=== PATIENT | male | born 1940 | race American Indian/Alaskan Native ===

== ENCOUNTER → 2020-02-01 | Outpatient (CLI) | payer MEDICARE ==
[~2020-02-01] MED LIST: ALBU90OI61 INH; BENZ100A PO; FAMO20 PO; FLUSAL2505 INH; GUAI600T33 PO; IBUP400 PO; LEVFLO500 PO; Norco 5-325 Ta1 EACH PO; OXYACE5T PO; Prednisone10 MG PO; Protonix40 MG PO; SPACER IH; SUCR1 PO; Zofran8 MG PO
[2020-02-07 13:09] LABS: M-SPIKE, % Not Observed % (Not Observed); PROTEIN,TOTAL,URINE 20.2 mg/dL (Not Estab.)
== END ==
LOC: LAB 08:00 → LAB SHORT 08:00 → LAB FUT 01-30 09:55
PROVIDERS: Internal Medicine
DX: E87.8 Other disorders of electrolyte and fluid balance, not elsewhere classified (principal)
CPT/HCPCS: 81050; 84156; 84166

== ENCOUNTER 2021-02-25 19:57 | Inpatient (IN) | payer MEDICARE ==
[~2021-02-25] VITALS: Ht 172.7 cm; Wt 45.7 kg
[~2021-02-25 19:57] MED LIST changes: -FLUSAL2505 INH; +FLUT1DIS5 INH
[2021-02-25 20:13] LABS: BASOPHILS ABSOLUTE AUTO 0.06 K/mm3 (0.00-0.23); BASOPHILS PERCENT AUTO 0 % (0-2); EOSINOPHILS ABSOLUTE AUTO 0.01 K/mm3 (0.00-0.68); EOSINOPHILS PERCENT AUTO 0 % (0-6); Hematocrit 43.8 % (37.0-53.0); Hemoglobin 14.3 g/dL (13.5-17.5); IMMATURE GRAN ABSOLUTE AUTO 0.11 K/mm3 (0.00-0.10); IMMATURE GRAN PERCENT AUTO 1 % (0-1); LYMPHOCYTES ABSOLUTE AUTO 4.24 K/mm3 (0.84-5.20); LYMPHOCYTES PERCENT AUTO 21 % (21-46); MONOCYTES ABSOLUTE AUTO 1.65 K/mm3 (0.16-1.47); MONOCYTES PERCENT AUTO 8 % (4-13); Mean Corpuscular HGB 29.5 pg (26.0-34.0); Mean Corpuscular HGB Conc 32.6 g/dL (31.5-36.5); Mean Corpuscular Volume 91 fL (80-100); Mean Platelet Volume 10.3 fL (9.1-12.4); NEUTROPHILS ABSOLUTE AUTO 14.14 K/mm3 (1.96-9.15); NEUTROPHILS PERCENT AUTO 70 % (41-73); Platelet Count 261 K/mm3 (150-400); RDW Coefficient Variation 14.5 % (11.7-14.2); RDW Standard Deviation 48.9 fL (35.1-46.3); Red Blood Cell Count 4.84 M/mm3 (4.30-5.90); White Blood Cell Count 20.21 K/mm3 (4.00-11.30)
[2021-02-25] MEDS ORDERED: TIOT18 INH (20:13)
[2021-02-25] MEDS ORDERED: ALBU2.5V5 NEB (20:14)
[2021-02-25 20:30] LABS: Anion Gap 8 mmol/L (6-16); Blood Urea Nitrogen 27 mg/dL (8-24); Bun/Creatinine Ratio 23.3 (12.0-20.0); CO2, Blood 27 mmol/L (21-32); Calcium, Blood 8.3 mg/dL (8.5-10.1); Chloride, Blood 99 mmol/L (98-108); Creatinine, Blood 1.16 mg/dL (0.60-1.20); Glomerular Filtration Rate >60 (60-); Glucose, Blood 113 mg/dL (70-99); Potassium, Blood 4.3 mmol/L (3.5-5.5); Sodium, Blood 134 mmol/L (136-145); Troponin I <0.015 ng/mL (0.000-0.040)
[2021-02-26 00:52] LABS: Influenza A, PCR NEGATIVE (NEGATIVE); Influenza B, PCR NEGATIVE (NEGATIVE); Resp Syncytial Virus, PCR NEGATIVE (NEGATIVE)
[2021-02-26 01:07] LABS: SARS-Cov-2 (COVID-19) PCR, MMC POSITIVE (NEGATIVE)
[2021-02-26 05:24] LABS: BASOPHILS ABSOLUTE AUTO 0.05 K/mm3 (0.00-0.23); BASOPHILS PERCENT AUTO 0 % (0-2); EOSINOPHILS ABSOLUTE AUTO 0.22 K/mm3 (0.00-0.68); EOSINOPHILS PERCENT AUTO 1 % (0-6); Hematocrit 39.2 % (37.0-53.0); Hemoglobin 12.9 g/dL (13.5-17.5); IMMATURE GRAN ABSOLUTE AUTO 0.07 K/mm3 (0.00-0.10); IMMATURE GRAN PERCENT AUTO 0 % (0-1); LYMPHOCYTES ABSOLUTE AUTO 1.05 K/mm3 (0.84-5.20); LYMPHOCYTES PERCENT AUTO 6 % (21-46); MONOCYTES PERCENT AUTO 9 % (4-13); Mean Corpuscular HGB 29.9 pg (26.0-34.0); Mean Corpuscular HGB Conc 32.9 g/dL (31.5-36.5); Mean Corpuscular Volume 91 fL (80-100); Mean Platelet Volume 10.3 fL (9.1-12.4); NEUTROPHILS ABSOLUTE AUTO 13.45 K/mm3 (1.96-9.15); NEUTROPHILS PERCENT AUTO 82 % (41-73); Platelet Count 220 K/mm3 (150-400); RDW Coefficient Variation 14.6 % (11.7-14.2); RDW Standard Deviation 49.2 fL (35.1-46.3); Red Blood Cell Count 4.31 M/mm3 (4.30-5.90); White Blood Cell Count 16.34 K/mm3 (4.00-11.30)
[2021-02-26 06:03] LABS: Alanine Aminotransfer (ALT/SGP 17 U/L (12-78); Albumin, Blood 2.7 g/dL (3.4-5.0); Albumin/Globulin Ratio 0.8 (0.8-1.8); Alk Phos 94 U/L (50-136); Anion Gap 7 mmol/L (6-16); Aspartate Aminotrans (AST/SGOT 23 U/L (12-37); Bilirubin, Total 0.6 mg/dL (0.1-1.0); Blood Urea Nitrogen 27 mg/dL (8-24); Bun/Creatinine Ratio 25.7 (12.0-20.0); CO2, Blood 27 mmol/L (21-32); Chloride, Blood 103 mmol/L (98-108); Creatinine, Blood 1.05 mg/dL (0.60-1.20); Globulin, Blood 3.5 g/dL (2.2-4.0); Glomerular Filtration Rate >60 (60-); Glucose, Blood 110 mg/dL (70-99); Potassium, Blood 4.6 mmol/L (3.5-5.5); Sodium, Blood 137 mmol/L (136-145); Total Protein, Blood 6.2 g/dL (6.4-8.2)
--- NOTE | 2021-02-26 17:41 | NUR ---
SHIFT SUMMARY PATIENT ADMITTED AT 1430 FROM ER. PATIENT SETTLED INTO ROOM. PATIENT DENIES PAIN, NAUSEA. PATIENT REPORTS SHORTNESS OF BREATH CONSISTANTLY. PATIENT HAS VISIBLE LABORED BREATHING. AUDIBLE WHEEZE WITH INSPIRATION. PATIENT IS ON 3L VIA N/C. PATIENT SATURATING ABOVE 95%. NEW ORDERS FOR REGULAR DIET. PATIENT EATING AND DRINKING WELL. TELE PLACED, RUNNING SINUS TACH AT 104. PATIENT VISITED. PATIENT IS VERY [place]. PATIENT IS PLEASANT AND COOPERATIVE WITH CARE.
[2021-02-27 05:17] LABS: BASOPHILS ABSOLUTE AUTO 0.04 K/mm3 (0.00-0.23); BASOPHILS PERCENT AUTO 0 % (0-2); EOSINOPHILS PERCENT AUTO 0 % (0-6); Hematocrit 42.3 % (37.0-53.0); Hemoglobin 13.9 g/dL (13.5-17.5); IMMATURE GRAN ABSOLUTE AUTO 0.06 K/mm3 (0.00-0.10); IMMATURE GRAN PERCENT AUTO 0 % (0-1); LYMPHOCYTES ABSOLUTE AUTO 0.51 K/mm3 (0.84-5.20); LYMPHOCYTES PERCENT AUTO 3 % (21-46); MONOCYTES ABSOLUTE AUTO 0.43 K/mm3 (0.16-1.47); MONOCYTES PERCENT AUTO 3 % (4-13); Mean Corpuscular HGB 29.8 pg (26.0-34.0); Mean Corpuscular HGB Conc 32.9 g/dL (31.5-36.5); Mean Corpuscular Volume 91 fL (80-100); Mean Platelet Volume 10.9 fL (9.1-12.4); NEUTROPHILS ABSOLUTE AUTO 14.78 K/mm3 (1.96-9.15); NEUTROPHILS PERCENT AUTO 93 % (41-73); Platelet Count 244 K/mm3 (150-400); RDW Coefficient Variation 14.5 % (11.7-14.2); RDW Standard Deviation 48.8 fL (35.1-46.3); Red Blood Cell Count 4.67 M/mm3 (4.30-5.90); White Blood Cell Count 15.82 K/mm3 (4.00-11.30)
--- NOTE | 2021-02-27 05:37 | NUR ---
SHIFT SUMMARY PT WAS ADMITTED FOR SOB DUE TO COVID 19. PT ON ENHANCED RESPIRATORY ISOLATION.FULL CODE STATUS. PT IS AA0X4, PLEASANT AND COOPERATIVE WITH CARE.PT REMAINS ON 3L NC, SATURATION 90 TO 96% NO CONCERNS VOICED BY PATIENT .MEDS GIVEN PER EMAR. PT DENIES PAIN. BED IN LOWER POSITION AND CALL LIGHT IN REACH. WILL CONTINUE TO MONITOR UNTIL GIVING REPORT TO ONCOMING NURSE.
--- NOTE | 2021-02-27 16:11 | NUR ---
SHIFT SUMMARY PATIENT DENIES PAIN AND NAUSEA. PATIENT IS FREQUENTLY SHORT OF BREATH. PATIENT IS ON 3L VIA N/C. PATIENT DESATS WITH ACTIVITY. PATIENT GETS VERY SOB WITH ANY ACTIVITY. PATIENT SON VISITED IN AFTERNOON. CARLOS ENRIQUE FROM PALL[facility]IVE [facility] VISITED PATIENT AND SON. PATIENT HAS POOR PO INTAKE, ENSURES ADDED TO MEALS. PATIENT IS VERY [place]. PATIENT IS PLEASANT AND COOPERATIVE WITH CARE.
--- NOTE | 2021-02-27 18:29 | NUR ---
Met with pt and his son. They were open to disuss hospice, which we did at [facility], and they'll talk with the rest of the family tonight. Pt denies pain, but does have increased SOB from his baseline, and is aware of the new nodules in his lungs. We also discussed POLST, and agree to sit down and finish it when son is present.
--- NOTE | 2021-02-28 04:14 | NUR ---
SHIFT SUMMARY PT IS AAOX4, PLEASANT AND COOPERATIVE WITH CARE. PT REMAINS ON ENHANCED RESPIARTORY ISOLATION.PT ON 3L NC. PT IS SOB WITH ANY LITTLE ACTIVITY.PT DENIES PAIN.ALL MEDS WERE GIVEN PER EMAR. PT IS RESTING NOW ,BED IN LOWER POSITION AND CALL LIGHT IN EASY REACH.WILL CONTINUE TO MONITOR IN CARE.
[2021-02-28 04:57] LABS: Hematocrit 42.7 % (37.0-53.0); Hemoglobin 13.8 g/dL (13.5-17.5); Mean Corpuscular HGB 29.3 pg (26.0-34.0); Mean Corpuscular HGB Conc 32.3 g/dL (31.5-36.5); Mean Corpuscular Volume 91 fL (80-100); Mean Platelet Volume 10.8 fL (9.1-12.4); Platelet Count 261 K/mm3 (150-400); RDW Coefficient Variation 14.7 % (11.7-14.2); RDW Standard Deviation 49.4 fL (35.1-46.3); Red Blood Cell Count 4.71 M/mm3 (4.30-5.90)
[2021-02-28 05:16] LABS: BAND PERCENT MAN 28 % (0-8); BASOPHILS PERCENT MAN 0 % (0-2); EOSINOPHILS PERCENT MAN 0 % (0-6); LYMPHOCYTES ABSOLUTE MAN 0.51 K/mm3 (0.84-5.20); LYMPHOCYTES PERCENT MAN 2 % (21-46); MONOCYTES ABSOLUTE MAN 0.51 K/mm3 (0.16-1.47); MONOCYTES PERCENT MAN 2 % (4-13); NEUTROPHILS ABSOLUTE MAN 24.48 K/mm3 (1.96-9.15); SEG NEUTROPHILS PERCENT MAN 68 % (41-73); TOTAL CELLS COUNTED 100
[2021-02-28 05:37] LABS: Anion Gap 5 mmol/L (6-16); Blood Urea Nitrogen 40 mg/dL (8-24); Bun/Creatinine Ratio 40.9 (12.0-20.0); CO2, Blood 30 mmol/L (21-32); Calcium, Blood 8.7 mg/dL (8.5-10.1); Chloride, Blood 105 mmol/L (98-108); Creatinine, Blood 0.98 mg/dL (0.60-1.20); Glomerular Filtration Rate >60 (60-); Glucose, Blood 144 mg/dL (70-99); Potassium, Blood 4.6 mmol/L (3.5-5.5); Sodium, Blood 140 mmol/L (136-145)
[2021-02-28 12:16] LABS: Source, Urine Straight Cath
[2021-02-28 12:20] LABS: Appearance, Urine Clear (Clear); Bilirubin, Urine Neg (Neg); Blood, Urine 2+ (Neg); Color, Urine Yellow (P-Yellow); Glucose Qualitative, Urine Neg (Neg); Ketones, Urine Neg (Neg); Leukocyte Esterase, Urine Neg (Neg); Nitrite, Urine Neg (Neg); Protein, Urine 2+ (Neg); Urobilinogen, Urine NORM (Normal)
[2021-02-28 12:35] LABS: Bacteria Mod /hpf; Mucus Light (0-Heavy); Red Blood Cells, Urine 0-2 /hpf (0-2); Squamous Epithelial Cells Mod /hpf (Few); White Blood Cells, Urine 0-2 /hpf (0-5)
--- NOTE | 2021-02-28 17:06 | NUR ---
SHIFT NOTE PT REMAINS ON 3L O2 VIA NASAL CANNULA T/O THE DAY WITH SPO2 >94%. ST c OCCASIONAL PVCs NOTED. URINE SAMPLE COLLECTED AND SENT TO LAB. DR ORDERED NEBULAIZED MORPHINE Q6 HOURS PRN FOR AIR HUNGER, HE HAS RECIEVED ONE DOSE, IT IS NOTED THAT PT HAD A HX OF AGGRESSION WITH MORPHINE IN THE PAST, MORPHINE WAS GIVEN WITH CAUTION WILL MONITOR FOR AGGRESSION. PT OTHERWISE REPORTS INTERMITENT AIR HUNGER. PT DENIES CP
--- NOTE | 2021-02-28 17:09 | NUR ---
SHIFT NOTE PT HAS REFUSED ZOLOFT AND ATARAX FOR ANXIETY STS THAT SHE CAN NOT TAKE "ANY ANXIETY MEDICATIONS AT ALL" BUT IS REQUESTING XANAX. PT ALSO REFUSED NICTENE PATCH, AND HER EVENING DOSE OF LASIX STS "I AM NOT SUPPOSED TO BE TAKING MY WATER PILL AT NIGHT BECAUSE I WILL NEVER REST" PT IS THOROUGHLY EDCUATED ABOUT MEDICATION COMPLIANCE AND STS "I AM AWARE". PER GUERRERO PATTON PT HAS A BED AT [facility] IN [place] FOR TOMORROW.
--- NOTE | 2021-03-01 03:55 | NUR ---
SHIFT SUMMARY NO ACUTE EVENTS OVERNIGHT . PT REMAINS ON 3L NC, SOB WITH EXHAUSTION. ALL MEDS WERE GIVEN PER EMAR. NO COMPLAINT OF PAIN WAS VOICED. BED IN LOWER POSITION AND CALL LIGHT IN REACH.WILL CONTINUE TO MONITOR IN CARE.
[2021-03-01 05:11] LABS: BASOPHILS ABSOLUTE AUTO 0.05 K/mm3 (0.00-0.23); BASOPHILS PERCENT AUTO 0 % (0-2); EOSINOPHILS PERCENT AUTO 0 % (0-6); Hematocrit 40.8 % (37.0-53.0); Hemoglobin 12.8 g/dL (13.5-17.5); IMMATURE GRAN ABSOLUTE AUTO 0.18 K/mm3 (0.00-0.10); IMMATURE GRAN PERCENT AUTO 1 % (0-1); LYMPHOCYTES ABSOLUTE AUTO 0.48 K/mm3 (0.84-5.20); LYMPHOCYTES PERCENT AUTO 2 % (21-46); MONOCYTES ABSOLUTE AUTO 0.55 K/mm3 (0.16-1.47); MONOCYTES PERCENT AUTO 3 % (4-13); Mean Corpuscular HGB 29.2 pg (26.0-34.0); Mean Corpuscular HGB Conc 31.4 g/dL (31.5-36.5); Mean Corpuscular Volume 93 fL (80-100); Mean Platelet Volume 10.7 fL (9.1-12.4); NEUTROPHILS ABSOLUTE AUTO 20.54 K/mm3 (1.96-9.15); NEUTROPHILS PERCENT AUTO 94 % (41-73); Platelet Count 238 K/mm3 (150-400); RDW Coefficient Variation 14.9 % (11.7-14.2); Red Blood Cell Count 4.38 M/mm3 (4.30-5.90)
--- NOTE | 2021-03-01 08:00 | NUR ---
pt laying in bed awake a/ox3, [place], pleasant and cooperative with care, follows commands well, denies pain, states he feels good, lungs are dim t/o, has a productive cough of yellow patten sputum, currently on 3 liters 02 via n/c, resp even and unlabored, hrr, tele in place running sr to st per monitor, see strip, no edema noted, ppp+2, cap refill<3sec, vs stable, afebrile, iv site is clear and patent, btx4, abd flat soft nontender, voids via urinal, skin frail but intact, reports no bm in several days, gave prune juice, maew, but is weak and pt states he can't ambulate to bathroom, explained we can bring a bedside cammode, patricia, call light in reach.
--- NOTE | 2021-03-01 18:09 | NUR ---
pt son in to visit, new iv was placed today to right wrist after many attempts, viens were blowing as soon as touched, old iv removed intact, no acute changes this shift. call light in reach.
--- NOTE | 2021-03-02 04:02 | NUR ---
NO ACUTE CHANGES TO PT CONDITION AT THIS TIME. PT CONTINUES TO BE ON 3L O2 AND ON TELE. PT SITTING UP WATCHING TELEVISION. PLEASANT AND COOPERATIVE WITH CARE. CALL LIGHT WITHIN REACH. WILL CONTINUE TO MONITOR.
[2021-03-02 05:14] LABS: BASOPHILS ABSOLUTE AUTO 0.02 K/mm3 (0.00-0.23); BASOPHILS PERCENT AUTO 0 % (0-2); EOSINOPHILS PERCENT AUTO 0 % (0-6); Hematocrit 43.2 % (37.0-53.0); Hemoglobin 13.5 g/dL (13.5-17.5); IMMATURE GRAN ABSOLUTE AUTO 0.11 K/mm3 (0.00-0.10); IMMATURE GRAN PERCENT AUTO 1 % (0-1); LYMPHOCYTES PERCENT AUTO 5 % (21-46); MONOCYTES ABSOLUTE AUTO 1.13 K/mm3 (0.16-1.47); MONOCYTES PERCENT AUTO 6 % (4-13); Mean Corpuscular HGB 29.2 pg (26.0-34.0); Mean Corpuscular HGB Conc 31.3 g/dL (31.5-36.5); Mean Corpuscular Volume 93 fL (80-100); Mean Platelet Volume 10.7 fL (9.1-12.4); NEUTROPHILS ABSOLUTE AUTO 16.15 K/mm3 (1.96-9.15); NEUTROPHILS PERCENT AUTO 88 % (41-73); Platelet Count 240 K/mm3 (150-400); RDW Coefficient Variation 14.7 % (11.7-14.2); RDW Standard Deviation 50.7 fL (35.1-46.3); Red Blood Cell Count 4.63 M/mm3 (4.30-5.90); White Blood Cell Count 18.31 K/mm3 (4.00-11.30)
[2021-03-02] MEDS ORDERED: PRED20 PO (12:03)
[2021-03-02] MEDS ORDERED: VISBIOME 112.51 EACH PO (12:06)
[2021-03-02] MEDS ORDERED: AMOCLA500 PO (12:07)
--- NOTE | 2021-03-02 14:53 | NUR ---
RT DID EVAL. STATES 2L MANAGER FORMS. DISCCHARGE REVIEWED WITH PT, HE VERBALIZED UNDRSTANDING MEDS AND INST. KEEP IV AND TELE UNTIL DISCHARGE. O2 TANK WAS BROUGHT TO ROOM. MAIN TANK TO BE DELIVERED TO SON'S HOME. STATES THIS IS WHERE HE STATES WILL STAY FOR SHORT REHAB. WHEN SON HERE, WILL REMOVE IV AND TELE.
--- NOTE | 2021-03-02 15:59 | NUR ---
PT HAS BEEN PLEASANT TODAY. NO C/O PAIN. EXPECTING TO D/C WHEN O2 PLACED AT HOME ON SON. PORTABLE O2 HERE NOW. D/C DONE EXCEPT IV REMOVAL. PENDING CALL FOR D/C
--- NOTE | 2021-03-02 17:21 | NUR ---
IV REMOVED INTACT. TELE REMOVED. PT WHEELED TO DOOR BY ME AT 165
== END 2021-03-02 16:50 | disposition home or self-care (01) | DRG 177 ==
LOC: ER 19:57 → ERHOLD 02-26 00:50 → MEDS 02-26 14:20
PROVIDERS: Internal Medicine; Student in an Organized Health Care Education/Training Program; ADMIT Internal Medicine
PROC: 8E0ZXY6 Isolation (ICD-10-PCS; principal; 2021-02-26)
PROC: XW033E5 Introduction of Remdesivir Anti-infective into Peripheral Vein, Percutaneous Approach, New Technology Group 5 (ICD-10-PCS; 2021-02-26)
DX: U07.1 COVID-19 (principal); J96.01 Acute respiratory failure with hypoxia; E43 Unspecified severe protein-calorie malnutrition; C34.90 Malignant neoplasm of unspecified part of unspecified bronchus or lung; R64 Cachexia; Z68.1 Body mass index [BMI] 19.9 or less, adult; J43.9 Emphysema, unspecified; B96.3 Hemophilus influenzae [H. influenzae] as the cause of diseases classified elsewhere; J20.8 Acute bronchitis due to other specified organisms; Z66 Do not resuscitate; N40.0 Benign prostatic hyperplasia without lower urinary tract symptoms; Z87.891 Personal history of nicotine dependence
CPT/HCPCS: 0241U; 31720; 36415; 71045; 71260; 80048; 80053; 81001; 83880; 84145; 84484; 85025; 85379; 86140; 87070; 87077; 87086; 87185; 87205; 93005; 93010; 94640; 94761; 94762; 99285-25; A9270; J0248; J0456; J0696; J1650; J2270; J2930; J7050; J7120; J7512; Q9967

== ENCOUNTER 2021-06-21 09:04 | Inpatient (IN) | payer MEDICARE ==
[~2021-06-21] VITALS: Ht 172.7 cm; Wt 50.1 kg
[~2021-06-21 09:04] MED LIST changes: +ALBU2.5V5 NEB; +AMOCLA500 PO; +PRED20 PO; +TIOT18 INH; +VISBIOME 112.51 EACH PO
[2021-06-21 09:25] LABS: Calcium, Ionized (POC) 1.16 mmol/L (1.10-1.46); Chloride (POC) 107 mmol/L (98-108); Glucose (ISTAT POC) 217 mg/dL (70-99); Potassium (POC) 4.2 mmol/L (3.5-5.5); Sodium (POC) 144 mmol/L (135-148); Total CO2 (POC) 28 mmol/L (21-32)
[2021-06-21 09:26] LABS: BASOPHILS ABSOLUTE AUTO 0.14 K/mm3 (0.00-0.23); BASOPHILS PERCENT AUTO 1 % (0-2); EOSINOPHILS PERCENT AUTO 3 % (0-6); Hematocrit 47.2 % (37.0-53.0); Hemoglobin 14.2 g/dL (13.5-17.5); Mean Corpuscular HGB 29.2 pg (26.0-34.0); Mean Corpuscular HGB Conc 30.1 g/dL (31.5-36.5); Mean Corpuscular Volume 97 fL (80-100); Mean Platelet Volume 10.8 fL (9.1-12.4); Platelet Count 296 K/mm3 (150-400); RDW Coefficient Variation 14.9 % (11.7-14.2); RDW Standard Deviation 54.6 fL (35.1-46.3); Red Blood Cell Count 4.86 M/mm3 (4.30-5.90); White Blood Cell Count 18.46 K/mm3 (4.00-11.30)
[2021-06-21 09:28] LABS: IMMATURE GRAN ABSOLUTE AUTO 0.05 K/mm3 (0.00-0.10); IMMATURE GRAN PERCENT AUTO 0 % (0-1); LYMPHOCYTES ABSOLUTE AUTO 6.19 K/mm3 (0.84-5.20); LYMPHOCYTES PERCENT AUTO 34 % (21-46); MONOCYTES ABSOLUTE AUTO 1.32 K/mm3 (0.16-1.47); MONOCYTES PERCENT AUTO 7 % (4-13); NEUTROPHILS ABSOLUTE AUTO 10.26 K/mm3 (1.96-9.15); NEUTROPHILS PERCENT AUTO 56 % (41-73)
[2021-06-21 09:30] LABS: PCO2 Arterial > 105 mmHg (35-45); pH Blood Arterial 6.92 (7.35-7.45)
[2021-06-21 09:31] LABS: PO2 Arterial 139 mmHg (80-100)
[2021-06-21 09:33] LABS: Anion Gap 7 mmol/L (6-16); Blood Urea Nitrogen 28 mg/dL (8-24); Bun/Creatinine Ratio 26.4 (12.0-20.0); CO2, Blood 26 mmol/L (21-32); Calcium, Blood 8.8 mg/dL (8.5-10.1); Chloride, Blood 111 mmol/L (98-108); Creatinine, Blood 1.06 mg/dL (0.60-1.20); Glomerular Filtration Rate >60 (60-); Glucose, Blood 224 mg/dL (70-99); Potassium, Blood 4.2 mmol/L (3.5-5.5); Sodium, Blood 144 mmol/L (136-145)
[2021-06-21 09:48] LABS: BASOPHILS ABSOLUTE MAN 0.36 K/mm3 (0.00-0.23); BASOPHILS PERCENT MAN 2 % (0-2); EOSINOPHILS ABSOLUTE MAN 0.73 K/mm3 (0.00-0.68); EOSINOPHILS PERCENT MAN 4 % (0-6); LYMPHOCYTES ABSOLUTE MAN 4.61 K/mm3 (0.84-5.20); LYMPHOCYTES PERCENT MAN 25 % (21-46); MONOCYTES ABSOLUTE MAN 0.55 K/mm3 (0.16-1.47); MONOCYTES PERCENT MAN 3 % (4-13); NEUTROPHILS ABSOLUTE MAN 12.18 K/mm3 (1.96-9.15); SEG NEUTROPHILS PERCENT MAN 66 % (41-73); TOTAL CELLS COUNTED 100
[2021-06-21 10:48] LABS: Influenza A, PCR NEGATIVE (NEGATIVE); Influenza B, PCR NEGATIVE (NEGATIVE); Resp Syncytial Virus, PCR NEGATIVE (NEGATIVE); SARS-Cov-2 (COVID-19) PCR, MMC NEGATIVE (NEGATIVE)
[2021-06-21 10:51] LABS: PCO2 Venous 73.5 mmHg (38-42); pH Blood Venous 7.21 (7.34-7.37)
[2021-06-21 10:52] LABS: Base Excess Venous 1.8 mmol/L; Bicarbonate Venous 23.3 mmol/L (24.0-30.0)
--- NOTE | 2021-06-21 11:59 | NUR ---
ADMISSION: Pt arrived to ICU at 1148. He was placed on BIPAP 12/6 at 75%. Left chest tube in place. Pt is awake and alert.
--- NOTE | 2021-06-21 12:24 | NUR ---
PULMONOLOGY: Discussed case with Dr. Evangelista.
--- NOTE | 2021-06-21 13:00 | NUR ---
CHEST TUBE: Dr Miller called to clarify order for chest tube until Dr Evangelista has had a chance to see pt. RN to put chest tube to gravity until seen by pulmonology.
[2021-06-21 13:24] LABS: PCO2 Arterial 50.3 mmHg (35-45); PO2 Arterial 338 mmHg (80-100); pH Blood Arterial 7.34 (7.35-7.45)
--- NOTE | 2021-06-21 17:42 | NUR ---
HYPOTENSION: Dr Evangelista called regarding pt's soft BPs. Telephone order for 1L NS over 4 hours.
--- NOTE | 2021-06-21 17:54 | NUR ---
SHIFT SUMMARY: Pt admitted to ICU from ED today. He was transitioned to NC from BIPAP and downgraded to PCU status shortly after admission. Neuro: pt a/o x 4; SAAVEDRA Cardiac: monitor shows ventricular trigeminy. pt receiving 1L saline bolus for hypotension Respiratory: currently on NC. Left anterior chest tube in place to water seal. No drainage or air leak. No drainage visible near chest tube insertion; foam tape in place. GI/: Pt tolerating regular diet well. Voiding in urinal without difficulty MSK/Skin: no breakdown noted on admission assessment. Pt repositions with minimal assistance. Psych/Social: Son and at bedside interacting appropriately with patient throughout the day.
--- NOTE | 2021-06-21 19:55 | NUR ---
ASSESSMENT/ASSUMED CARE PT SITTING UP IN BED WATCHING TV. C/O PAIN TO LEFT FLANK WHERE CHEST TUBE IS AT WITH MOVEMENT. PAIN 2/10 WITH MOVEMENT, BUT ZERO WITH REST. LUNGS COARSE ON 3 LITERS O2 VIA NC. SPO2 99-100%. SOB NOTED WITH ACTIVITY, IMPROVES WITH REST. PRODUCTIVE COUGH SMALL AMT THICK YELLOW SPUTUM. HEART RATE IRREGULAR. BIGEMENY, TRIGEMENY AND SINUS RHYTHM. DENIES CHEST PAIN. CHEST TUBE THORAVENT TO WATER SEAL. FOAM DRSG INTACT. BT+ ABD FLAT AND SOFT, NONTENDER. DENIES N/V. IV 20G TO RIGHT AC SALINE LOCKED, SITE CLEAR. IV 20G TO RIGHT UPPER ARM/SHOULDER WITH NS BOLUS INFUSING AT 250 ML/HR, SITE CLEAR. NO EDEMA. BP MAP LOW AT TIMES. WILL CONT TO MONITOR POSSIBLE CALL TO DR DAY AFTER FLUID BOLUS IS COMPLETE IF CONT HYPOTENSION.
--- NOTE | 2021-06-21 22:00 | NUR ---
BOLUS NORMAL SALINE BOLUS COMPLETE, DECREASED IV FLUID TO 100 ML/HR. WILL MONITOR FOR HYPOTENSION
--- NOTE | 2021-06-21 23:05 | NUR ---
CALL TO MD SPOKE WITH DR DAY REGARDING HYPOTENSION WITH MAPS 60-64 AFTER FLUID BOLUS COMPLETE. OBTAINED ORDER FOR SECOND NS 1000 ML BOLUS TO BE GIVEN OVER 4HOURS.
[2021-06-22 03:15] LABS: Hematocrit 37.2 % (37.0-53.0); Mean Corpuscular HGB 30.3 pg (26.0-34.0); Mean Corpuscular HGB Conc 32.3 g/dL (31.5-36.5); Mean Corpuscular Volume 94 fL (80-100); Mean Platelet Volume 10.9 fL (9.1-12.4); Platelet Count 218 K/mm3 (150-400); RDW Coefficient Variation 15.1 % (11.7-14.2); RDW Standard Deviation 52.2 fL (35.1-46.3); Red Blood Cell Count 3.96 M/mm3 (4.30-5.90); White Blood Cell Count 22.51 K/mm3 (4.00-11.30)
[2021-06-22 03:36] LABS: Anion Gap 4 mmol/L (6-16); Blood Urea Nitrogen 33 mg/dL (8-24); Bun/Creatinine Ratio 34.3 (12.0-20.0); CO2, Blood 26 mmol/L (21-32); Calcium, Blood 8.2 mg/dL (8.5-10.1); Chloride, Blood 112 mmol/L (98-108); Creatinine, Blood 0.96 mg/dL (0.60-1.20); Glomerular Filtration Rate >60 (60-); Glucose, Blood 141 mg/dL (70-99); Potassium, Blood 4.4 mmol/L (3.5-5.5); Sodium, Blood 142 mmol/L (136-145)
--- NOTE | 2021-06-22 04:11 | NUR ---
PT SITTING UP IN BED WATCHING TV. STATES,"I SLEPT ALL DAY YESTERDAY, SO I AM NOT TIRED". DENIES PAIN OR DISCOMFORT.
--- NOTE | 2021-06-22 05:33 | NUR ---
SHIFT SUMMARY PT AWAKE ALL NIGHT WATCHING TV. STATES,"I SLEPT ALL DAY YESTERDAY, SO I'M NOT TIRED". PT MOVING SELF AROUND IN BED. UP TO SIDE OF THE BED WITH ASSIST TO VOID. PT GIVEN NS ONE LITER BOLUS OVER 4HRS DURING THE NIGHT FOR HYPOTENSION. BP IMPROVED NOW 117/58 MAP 74. HEART RATE CONT TO BE IRREGULAR WITH BIGEMENY AND TRIGEMENY. LUNGS CONT COARSE ON 3 LITERS O2 VIA NC. PRODUCTIVE COUGH WITH THICK YELLOW SPUTUM. CHEST TUBE (THORAVENT) TO LEFT LATERAL TO WATER SEAL. DRSG INTACT. PT DENIES SOB, BUT SOB NOTED WITH ACTIVITY. RESOLVES WITH REST. PT VOIDED 150 ML DARK URINE. REPORT TO ON COMING NURSE
--- NOTE | 2021-06-22 14:11 | NUR ---
[facility]IAL [facility] VISIT - Isabel [phone] Son, Nacho [phone] Visit to pt and two family members in ICU 15. EMR reviewed and case conferenced with bedside RN briefly prior to visit. [facility] last saw pt in hospital in February when he was here with COVID. Pt is 80 and despite frail, chachectic presentation appears younger than his age. 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 He was admitted yesterday genesis with L pneumothorax, respiratory failure, hypoxia. Pt is sitting in chair visiting with his and DIL. O2 via nc in place at 3L and biox reading 98%. I assisted him back to bed per his request. Pt sitting with HOB elevated to max, clearly dyspnic with minimal effort of transfer. After some recovery time s/s assessment done. Pt is extremely [place], pleasant and smiling despite dyspnea of 4-5/7. He denies pain and anxiety but does demonstrate nonverbal indicators of discomfort and anxiety with severe dyspnia. We reviewed his most recent stay, his 's illness at the same time this Winter and family help available when needed. Pt/ and DIL expressed deep dissatisfaction with HH orders for when she was d/c'd because they never called or attempted to visit for more than three weeks so when they finally did call to schedule the family said "nevermind". They verbalized reluctance to accept another HH referral on d/c. I instructed to discuss with CM closer to D/c when care needs better known. Son and DIL live out of area but come to assist with parents when needed. Pt did not verbalize any concerns with goals of care, plan of care. He states he is so much better than he was on arrival yesterday and adds that just since this am he has continued to improve. He is very happy with rapid improvement. Contact numbers from writen on [employer]. No d/c anticipated today. Will return if requested or indicated.
--- NOTE | 2021-06-23 05:33 | NUR ---
DAKOTA HAS BEEN AWAKE ON AND OFF T/O THE NIGHT. HE WILL AWAKEN AND BE DISORIENTED AND PULL OFF HIS OXYGEN AND HIS CORDS/LINES. THEN IT TAKES HIM A BIT OF TIME TO RECOVER. HE NOTED THAT THIS LAST TIME AROUND 0300. HE COMMENTED THAT IT TAKES HIM LONGER TO RECOVER. REMINDED THAT HE JUST WENT THROUGH A COLLAPSED LUNG AND IT TAKES TIME TO RECOVER. HE IS ANXIOUS ABOUT GOING HOME. HE CONTINUES ON NC @ 3L. HE DOES REMARK THAT HE DOESN'T FEEL LIKE IT IS "COMING THROUGH" WHEN HE IS IN THE MIDST OF THOSE RECOVERY PERIODS. GENTLE REMINDERS TO SLOW HIS BREATHING AND FOCUS, WELL TIME HELPS. SHARED A BIT ABOUT HIS SON WANTING HE AND HIS TO MOVE IN WITH HIM, HE ISN'T TOO FOND OF THE IDEA. WILL CONTINUE TO MONITOR AND TREAT UNTIL TIME TO REPORT OFF TO NEXT SHIFT.
--- NOTE | 2021-06-23 11:59 | NUR ---
REASSESSMENT PT HAS BEEN RESTING IN BED OR SITTING UP IN A CHAIR THROUGHOUT THE MORNING. HE STARTED OFF ON 3L/NC AND WAS TITRATED DOWN TO RA. AT REST HE IS AROUND 94% ON RA, BUT WITH ACTIVITY HE GETS A LITTLE DYSPNEIC AND DESATURATES TO THE MID 80S. HE RECOVERS QUICKLY WHEN 2L/NC ARE PUT BACK ON HIM. LUNGS HAVE EXP WHEEZES BILATERALLY, CONGESTED, MC KAY STITCHER COUGH. DR. CASTORENA CAME BY ON ROUNDS AND SAID PT OK TO BE OFF TELEMETRY, MED STATUS. PT WAS REALLY WANTING TO GO HOME TODAY, BUT AGREED TO STAY AFTER DR. CASTORENA SAW HIM AND EXPLAINED THAT HE SHOULD STAY ANOTHER DAY. PT'S SON AT THE BEDSIDE VISITING WITH HIM CURRENTLY.
--- NOTE | 2021-06-23 17:12 | NUR ---
SHIFT SUMMARY PT HAS BEEN DOING WELL ON AND OFF THE OXYGEN TODAY. AT REST, HE MAINTAINS SPO2 IN THE MID 90S ON RA, BUT PT IS NERVOUS ABOUT NOT HAVING HIS OXYGEN, EVEN THOUGH HE TELLS THIS NURSE THAT HE ONLY WEARS OXYGEN AT NIGHT. SO NASAL CANNULA LEFT WITH PT, TURNED ONTO 2L/NC AND HE HAS BEEN PUTTING IT OFF AND ON THROUGHOUT THE SHIFT. PT DOES DESATURATE TO THE 80S WITH STANDING AT THE EDGE OF THE BED SO PT PUTS THE OXYGEN ON BEFORE HE GOES TO THE RESTROOM. PT'S SON WHO VISITED TODAY SAYS THAT THE PT ACTUALLY DOES WEAR 2.5L AT HOME ALL THE TIME. PT'S ALSO VISITED THIS AFTERNOON AND WAS UPDATED.
--- NOTE | 2021-06-23 17:48 | NUR ---
TRANSFER PT TRANSFERRED TO 330 VIA WITH LEGAL RECORDS MANAGER. REPORT GIVEN TO MEDICAL FLOOR NURSE. ALL BELONGINGS SENT WITH PT. PT'S SON WITH HIM AT TIME OF TRANSFER.
--- NOTE | 2021-06-24 04:53 | NUR ---
SHIFT SUMMARY PT AWAKE OFF AND ON TONIGHT. BECOMES VERY SOB WITH LITTLE EXERTION. PT REPORTS THAT THIS IS HIS BASELINE. PT IS ABLE TO RECOVER WITH REST BUT IT CAN TAKE SOME TIME. PT ON 2-3 L. O2 SATS IN THE MID 90'S. DRESSING TO LEFT SIDE OF CHEST FROM PREVIOUS CHEST TUBE C/D/I. PT HAS HAD SOME DIFFICULTY URINATING THIS EVENING. ONLY ABLE TO VOID SMALL AMOUNTS. AND PT STRUGGLES WITH BREATHING WITH FREQUENT BATHROOM VISITS. BLADDER SCAN PERFORMED BY MARGRET SHOWING 400 ML. PT CONTINUING TO ATTEMPT TO VOID. WILL CONTINUE TO MONITOR. VITAL SIGNS STABLE. PT REPORTS THAT HE IS GOING HOME TO DAY NO MATTER WHAT.
[2021-06-24 05:16] LABS: BASOPHILS ABSOLUTE AUTO 0.04 K/mm3 (0.00-0.23); BASOPHILS PERCENT AUTO 0 % (0-2); EOSINOPHILS PERCENT AUTO 0 % (0-6); Hematocrit 42.1 % (37.0-53.0); Hemoglobin 13.2 g/dL (13.5-17.5); IMMATURE GRAN ABSOLUTE AUTO 0.34 K/mm3 (0.00-0.10); IMMATURE GRAN PERCENT AUTO 1 % (0-1); LYMPHOCYTES ABSOLUTE AUTO 0.56 K/mm3 (0.84-5.20); LYMPHOCYTES PERCENT AUTO 2 % (21-46); MONOCYTES ABSOLUTE AUTO 0.58 K/mm3 (0.16-1.47); MONOCYTES PERCENT AUTO 2 % (4-13); Mean Corpuscular HGB 29.5 pg (26.0-34.0); Mean Corpuscular HGB Conc 31.4 g/dL (31.5-36.5); Mean Corpuscular Volume 94 fL (80-100); Mean Platelet Volume 11.5 fL (9.1-12.4); NEUTROPHILS ABSOLUTE AUTO 26.97 K/mm3 (1.96-9.15); NEUTROPHILS PERCENT AUTO 95 % (41-73); Platelet Count 272 K/mm3 (150-400); RDW Coefficient Variation 15.4 % (11.7-14.2); RDW Standard Deviation 53.2 fL (35.1-46.3); Red Blood Cell Count 4.47 M/mm3 (4.30-5.90); White Blood Cell Count 28.49 K/mm3 (4.00-11.30)
[2021-06-24 05:50] LABS: Albumin, Blood 3.5 g/dL (3.4-5.0); Anion Gap 6 mmol/L (6-16); Blood Urea Nitrogen 36 mg/dL (8-24); Bun/Creatinine Ratio 38.6 (12.0-20.0); CO2, Blood 29 mmol/L (21-32); Calcium, Blood 8.7 mg/dL (8.5-10.1); Chloride, Blood 108 mmol/L (98-108); Creatinine, Blood 0.93 mg/dL (0.60-1.20); Glomerular Filtration Rate >60 (60-); Glucose, Blood 134 mg/dL (70-99); Magnesium, Blood 2.7 mg/dL (1.6-2.4); Phosphorus, Blood 3.8 mg/dL (2.5-4.9); Potassium, Blood 4.3 mmol/L (3.5-5.5); Sodium, Blood 143 mmol/L (136-145)
--- NOTE | 2021-06-24 16:47 | NUR ---
SHIFT SUMMARY PT AWAKE DURING SHIFT REPORT. PLEASANT BUT FORGETFUL. PT WANTING TO GO HOME SINCE START OF SHIFT, WAITING FOR DOCTOR TO D/C HIM. DR CASTORENA IN TO SEE PT AND TALK WITH PT FOR A WHILE. PT SEEMED TO CALM AND BE CONTENT WITH STAYING AND COMPLETING NEEDED TESTS. ABX CHANGED AND GIVEN PER EMAR. NEW ORDERS PLACED. PT HAS BEEN CO-OP WITH WAITING FOR ASSISTANCE. DISCUSSED URINARY RETENSION AND DIFFICULTY VOIDING WITH DR CASTORENA. PT RESTING QUIETLY WATCHING TV. DENIED FURTHER NEEDS. CALL LT IN REACH.
--- NOTE | 2021-06-24 19:57 | NUR ---
AWAKE. LAUGHING WITH NURSE ASSESSMENT DONE. WATCHING TV. O2 AT 2L/NC. CALL LIGHT IN REACH
--- NOTE | 2021-06-25 03:32 | NUR ---
BALL WORKER SUMMARY AT SHIFT COMMENCE, AFFECT CHEERFUL HE JOKED WITH STAFF. VOICED SOME FRUSTRATION OF NOT GOING HOME YET, BUT SEEMED CONTENT ON BEING HERE. RECEIVED RESP TREATMENTS, RESPS CONGESTED TO AUSCULTATION, TREATMENTS EFFECTIVE, PRODUCTIVE COUGH. O2 PER NC AT 2L/MIN. RESTING QUIETLY FOR THE PAST FEW HOURS. CALL LIGHT IN REACH. O2 SATS IN THE 90'S. VSS.
[2021-06-25 08:31] LABS: BASOPHILS ABSOLUTE AUTO 0.02 K/mm3 (0.00-0.23); BASOPHILS PERCENT AUTO 0 % (0-2); EOSINOPHILS PERCENT AUTO 0 % (0-6); Hematocrit 41.8 % (37.0-53.0); Hemoglobin 13.2 g/dL (13.5-17.5); IMMATURE GRAN ABSOLUTE AUTO 0.11 K/mm3 (0.00-0.10); IMMATURE GRAN PERCENT AUTO 1 % (0-1); LYMPHOCYTES ABSOLUTE AUTO 1.06 K/mm3 (0.84-5.20); LYMPHOCYTES PERCENT AUTO 5 % (21-46); MONOCYTES ABSOLUTE AUTO 1.78 K/mm3 (0.16-1.47); MONOCYTES PERCENT AUTO 9 % (4-13); Mean Corpuscular HGB 29.1 pg (26.0-34.0); Mean Corpuscular HGB Conc 31.6 g/dL (31.5-36.5); Mean Corpuscular Volume 92 fL (80-100); Mean Platelet Volume 11.5 fL (9.1-12.4); NEUTROPHILS ABSOLUTE AUTO 16.77 K/mm3 (1.96-9.15); NEUTROPHILS PERCENT AUTO 85 % (41-73); Platelet Count 248 K/mm3 (150-400); RDW Coefficient Variation 15.2 % (11.7-14.2); RDW Standard Deviation 51.6 fL (35.1-46.3); Red Blood Cell Count 4.54 M/mm3 (4.30-5.90); White Blood Cell Count 19.74 K/mm3 (4.00-11.30)
[2021-06-25] MEDS ORDERED: GUAI600T33 PO (11:59)
[2021-06-25] MEDS ORDERED: DOCU100 PO (11:59)
[2021-06-25] MEDS ORDERED: TAMS.4ER PO (12:00)
[2021-06-25] MEDS ORDERED: VISBIOME 112.51 EACH PO (12:01)
[2021-06-25] MEDS ORDERED: LEVAQUIN750 MG PO (12:02)
--- NOTE | 2021-06-25 14:56 | NUR ---
PT IS A&O, PLEASANT AND CO-OP, WANTING TO GO HOME AGAIN TODAY. PT IMPROVING; PRODUCTIVE COUGH WITH TIGHTNESS BREAKING UP. PT ABLE TO AMBULATE IN HALLS AND AROUND IN . AND DAUGHTER HERE TO VISIT. DR CASTORENA IN TO SEE PT. MED LIST OBTAINED FROM [facility]. PER PHARMACY PT HASN'T BEEN TAKING FLOMAX ON A REGULAR BASIS HE TOLD DR CASTORENA. D/C MEDS ORDERED AND FAXED PER PT REQUEST. D/C ORDERS PLACED AND INSTRUCTIONS REVIEWED WITH PT AND ; VERBALIZED UNDERSTANDING. IV SITE D/C'D WNL'S. PRESSURE DRSG REMOVED PER ICU INSTRUCTIONS, OVER POST CHEST TUBE REMOVAL SITE, AND NEW PETROLATUM DRESSING AND TEGADERM PLACED OVER SITE. PT TOLERATED WELL. NO C/O. SITE WNL'S; NO REDNESS OR SX'S OF BLEEDING FROM SITE OR ON OLD DRSG. BELONGINGS GATHERED BY . PT ASSISTED OUT TO DAUGHTERS CAR VIA W/C.
--- NOTE | 2021-06-25 15:09 | NUR ---
PT WAS AWAKE AND MOVING IN THE BIGINNING OF THE SHIFT. PT CALLED TO EMPTY URINAL. PT STATED HE HAS POLYURIA AND NOCTURIA. PT WAS COUGHING UP COPIOUS AMOUNT OF THICK GREEN SPUTUM. PT RECEVIED A STAT ORDER OF LEVOQUIN 750MG DOSE. PT WAS SEEN BY PT AND WAS CLEARED BY PT. PT GOT ORDERS TO BE DISCHARGED HOME WITH . PT'S IV WAS REMOVED WITH NO COMPLICATIONS. PT CHEST TUBE DRESSING WAS CHANGE AND REPLACED WITH PETROLEUM JELLY AND TEGADERM DRESSING APPLIED. PT WAS TRANSPORTED HOME WITH .
[2021-06-26] MEDS ORDERED: OXAYDO5 M1 PO (23:05)
[2021-06-28] MEDS ORDERED: VISBIOME PO (17:57)
[2021-06-28] MEDS ORDERED: ALBU3IS INH (17:59)
[2021-06-28] MEDS ORDERED: Colace100 MG PO (18:00)
[2021-06-28] MEDS ORDERED: Advair Diskus 250-50 INH (18:01)
[2021-06-28] MEDS ORDERED: GUAI600T33 PO (18:03)
[2021-06-28] MEDS ORDERED: LEVAQUIN750 MG PO (18:04)
[2021-06-28] MEDS ORDERED: FLOMAX0.4 MG PO (18:05)
[2021-06-28] MEDS ORDERED: TIOT18 INH (18:06)
== END 2021-06-25 14:44 | disposition home health service (06) | DRG 199 ==
LOC: ER 09:04 → ICUW 10:46 → MEDS 06-23 17:56
PROVIDERS: Student in an Organized Health Care Education/Training Program; ADMIT Internal Medicine
PROC: 0W9B30Z Drainage of Left Pleural Cavity with Drainage Device, Percutaneous Approach (ICD-10-PCS; principal; 2021-06-21)
PROC: 5A09357 Assistance with Respiratory Ventilation, Less than 24 Consecutive Hours, Continuous Positive Airway Pressure (ICD-10-PCS; 2021-06-21)
DX: J93.83 Other pneumothorax (principal); J96.21 Acute and chronic respiratory failure with hypoxia; G92.8 Other toxic encephalopathy; E87.2 Acidosis; E44.0 Moderate protein-calorie malnutrition; Z66 Do not resuscitate; R64 Cachexia; Z68.1 Body mass index [BMI] 19.9 or less, adult; Z20.822 Contact with and (suspected) exposure to COVID-19; I95.9 Hypotension, unspecified; J43.8 Other emphysema; D72.829 Elevated white blood cell count, unspecified; I10 Essential (primary) hypertension; E86.0 Dehydration; N40.0 Benign prostatic hyperplasia without lower urinary tract symptoms; F17.210 Nicotine dependence, cigarettes, uncomplicated; Z85.118 Personal history of other malignant neoplasm of bronchus and lung; Z79.52 Long term (current) use of systemic steroids; Z79.899 Other long term (current) drug therapy; Z98.890 Other specified postprocedural states; Z90.2 Acquired absence of lung [part of]
CPT/HCPCS: 0241U; 32551; 36415; 36600; 71045; 71046; 80047; 80048; 80069; 82803; 83735; 84145; 84484; 85014; 85025; 85027; 93005; 93010; 94640; 94644; 94660; 94664; 94760; 96365; 96367; 96368; 96375; 97110; 97161; 97166; 97530; 97535; 99285-25; A9270; J0456; J1650; J1885; J1956; J2930; J3475; J7030; J7060